=== PATIENT | female | born 1975 | race Caucasian/White ===

== ENCOUNTER → 2025-01-17 08:32 | Outpatient (REF) | payer BC, SELFPAY | LOC: RAD 08:32 | PROVIDERS: ATTENDING PHYSICIAN Physician Assistant Medical | DX: R09.89 Other specified symptoms and signs involving the circulatory and respiratory systems (principal) | CPT/HCPCS: 93880 ==

== ENCOUNTER → 2025-01-18 13:33 | Outpatient (REF) | payer BC, SELFPAY | LOC: WDC 13:33 | PROVIDERS: ATTENDING PHYSICIAN Physician Assistant Medical | DX: Z12.31 Encounter for screening mammogram for malignant neoplasm of breast (principal) | CPT/HCPCS: 77063; 77067 ==